=== PATIENT | female | born 1950 | race Caucasian/White ===

== ENCOUNTER → 2018-08-01 | Outpatient (CLI) | payer MEDICARE ==
--- NOTE | 2018-08-01 13:59 | XR ---
EXAMINATION TYPE: XR knee complete RT DATE OF EXAM: 08/01/2018 COMPARISON: NONE HISTORY: Pain TECHNIQUE: Four views are submitted. FINDINGS: Diffuse osteopenia with narrowing of the medial compartment of the knee joint and mild hypertrophic c hanges. Moderate narrowing patellofemoral joint with hypertrophic changes and small amount of fluid i n the suprapatellar bursa.. Osseous structures are intact. No acute fracture seen. IMPRESSION: 1. Osteoarthritis.
== END | disposition home or self-care (01) ==
LOC: RADXRMAIN 13:26
PROVIDERS: ATTEND Family Medicine
DX: M17.11 Unilateral primary osteoarthritis, right knee (principal)

== ENCOUNTER 2020-02-27 08:22 | Observation (INO) | payer MEDICARE ==
[2020-02-27] MEDS ORDERED: SODIUM CHLORIDE 0.9% 500 ML 500 ML IV STA (08:38)
--- NOTE | 2020-02-27 08:52 | ED ---
General Adult HPI - General Chief complaint: Abdominal Pain Stated complaint: abd pain Time Seen by Provider: 02/27/20 08:25 Source: patient, RN notes reviewed, old records reviewed Mode of arrival: ambulatory Limitations: no limitations - History of Present Illness Initial comments: This is a 70-year-old female presents to the emergency department complaining of diffuse abdominal pain. Patient states on Tuesday she believes she over ate and then on Tuesday she had abdominal pain diffusely with a maximum pain score 6 of 10 and in between being much less. Patient states there is no one specific area of pain. Patient states she vomited times one. Patient denies fever or chills. Patient denies any diarrhea. Patient denies dysuria hematuria urinary frequency. Patient denies any chest pain palpitations difficulty breathing. Patient denies any back pain. - Related Data Home Medications Medication Instructions Recorded Confirmed Cholecalciferol [Vitamin D3 (25 1,000 unit PO DAILY 02/27/20 02/27/20 Mcg = 1000 Iu)] Cyanocobalamin (Vitamin B-12) 2,500 mcg PO DAILY 02/27/20 02/27/20 [Vitamin B-12] Ibandronate Sodium 150 mg PO Q30D 02/27/20 02/27/20 Letrozole 2.5 mg PO DAILY 02/27/20 02/27/20 Multivitamins, Thera [Multivitamin 1 tab PO DAILY 02/27/20 02/27/20 (formulary)] Omeprazole 20 mg PO DAILY 02/27/20 02/27/20 Allergies Allergy/AdvReac Type Severity Reaction Status Date / Time No Known Allergies Allergy Verified 02/27/20 10:15 Review of Systems ROS Statement: Those systems with pertinent positive or pertinent negative responses have been documented in the HPI. ROS Other: All systems not noted in ROS Statement are negative. Past Medical History Past Medical History: Cancer Additional Past Medical History / Comment(s): Breast CA 2016 History of Any Multi-Drug Resistant Organisms: None Reported Additional Past Surgical History / Comment(s): D&C Past Psychological History: No Psychological Hx Reported Smoking Status: Never smoker Past Alcohol Use History: None Reported Past Drug Use History: None Reported General Exam - General Exam Comments Initial Comments: GENERAL: Patient is well-developed and well-nourished. Patient is nontoxic and well- hydrated and is in mild distress. ENT: Neck is soft and supple. No significant lymphadenopathy is noted. Oropharynx is clear. Moist mucous membranes. Neck has full range of motion without eliciting any pain. EYES: The sclera were anicteric and conjunctiva were pink and moist. Extraocular movements were intact and pupils were equal round and reactive to light. Eyelids were unremarkable. PULMONARY: Unlabored respirations. Good breath sounds bilaterally. No audible rales rhonchi or wheezing was noted. CARDIOVASCULAR: There is a regular rate and rhythm without any murmurs gallops or rubs. ABDOMEN: No rebound or guarding. There was slight tenderness in the right upper quadrant. SKIN: Skin is clear with no lesions or rashes and otherwise unremarkable. NEUROLOGIC: Patient is alert and oriented x3. Cranial nerves II through XII are grossly intact. Motor and sensory are also intact. Normal speech, volume and content. Symmetrical smile. MUSCULOSKELETAL: Normal extremities with adequate strength and full range of motion. LYMPHATICS: No significant lymphadenopathy is noted PSYCHIATRIC: Normal psychiatric evaluation. Limitations: no limitations Course Vital Signs 02/27/20 02/27/20 02/27/20 08:23 10:33 11:07 Temperature 98.2 F 99.8 F H Pulse Rate 81 68 71 Respiratory 16 16 16 Rate Blood Pressure 112/79 130/64 143/67 O2 Sat by Pulse 95 97 96 Oximetry Medical Decision Making - Medical Decision Making Computed tomography scan shows significant inflammation around the gallbladder and a stone in the gallbladder neck. I spoke with Dr. Pearce she wanted the patient admitted admitted the patient I wrote admitting orders. I started the patient on Zosyn. EKG shows a normal sinus rhythm at 71 bpm WA interval is 138 QRS is 92 QT interval 394 QTC is 428. Patient's EKG shows no ST segment elevation or depression. - Lab Data Result diagrams: 02/27/20 08:51 02/27/20 08:51 Lab Results 02/27/20 02/27/20 02/27/20 Range/Units 08:51 08:51 08:51 WBC 20.3 H (3.8-10.6) k/uL RBC 5.22 (3.80-5.40) m/uL Hgb 15.0 (11.4-16.0) gm/dL Hct 45.8 (34.0-46.0) % MCV 87.7 (80.0-100.0) fL MCH 28.7 (25.0-35.0) pg MCHC 32.7 (31.0-37.0) g/dL RDW 12.7 (11.5-15.5) % Plt Count 258 (150-450) k/uL Neutrophils % 90 % Lymphocytes % 4 % Monocytes % 5 % Eosinophils % 0 % Basophils % 0 % Neutrophils # 18.2 H (1.3-7.7) k/uL Lymphocytes # 0.8 L (1.0-4.8) k/uL Monocytes # 1.1 H (0-1.0) k/uL Eosinophils # 0.1 (0-0.7) k/uL Basophils # 0.0 (0-0.2) k/uL PT (9.0-12.0) sec INR (<1.2) APTT (22.0-30.0) sec Sodium 140 (137-145) mmol/L Potassium 3.6 (3.5-5.1) mmol/L Chloride 100 (98-107) mmol/L Carbon Dioxide 29 (22-30) mmol/L Anion Gap 11 mmol/L BUN 10 (7-17) mg/dL Creatinine 0.75 (0.52-1.04) mg/dL Est GFR (CKD-EPI)AfAm >90 (>60 ml/min/1.73 sqM) Est GFR (CKD-EPI)NonAf 81 (>60 ml/min/1.73 sqM) Glucose 147 H (74-99) mg/dL Plasma Lactic Acid Khang (0.7-2.0) mmol/L Calcium 9.6 (8.4-10.2) mg/dL Total Bilirubin 1.1 (0.2-1.3) mg/dL AST 24 (14-36) U/L ALT 19 (4-34) U/L Alkaline Phosphatase 92 (38-126) U/L Total Protein 7.8 (6.3-8.2) g/dL Albumin 4.2 (3.5-5.0) g/dL Amylase 34 (30-110) U/L Lipase 31 (23-300) U/L Urine Color Yellow Urine Appearance Cloudy H (Clear) Urine pH 5.5 (5.0-8.0) Ur Specific Sanford 1.024 (1.001-1.035) Urine Protein 1+ H (Negative) Urine Glucose (UA) Negative (Negative) Urine Ketones 3+ H (Negative) Urine Blood Small H (Negative) Urine Nitrite Negative (Negative) Urine Bilirubin Negative (Negative) Urine Urobilinogen 2.0 (<2.0) mg/dL Ur Leukocyte Esterase Moderate H (Negative) Urine RBC 4 (0-5) /hpf Urine WBC 17 H (0-5) /hpf Ur Squamous Epith Cells 9 H (0-4) /hpf Urine Mucus Many H (None) /hpf 02/27/20 02/27/20 Range/Units 08:51 10:42 WBC (3.8-10.6) k/uL RBC (3.80-5.40) m/uL Hgb (11.4-16.0) gm/dL Hct (34.0-46.0) % MCV (80.0-100.0) fL MCH (25.0-35.0) pg MCHC (31.0-37.0) g/dL RDW (11.5-15.5) % Plt Count (150-450) k/uL Neutrophils % % Lymphocytes % % Monocytes % % Eosinophils % % Basophils % % Neutrophils # (1.3-7.7) k/uL Lymphocytes # (1.0-4.8) k/uL Monocytes # (0-1.0) k/uL Eosinophils # (0-0.7) k/uL Basophils # (0-0.2) k/uL PT 10.9 (9.0-12.0) sec INR 1.1 (<1.2) APTT 26.9 (22.0-30.0) sec Sodium (137-145) mmol/L Potassium (3.5-5.1) mmol/L Chloride (98-107) mmol/L Carbon Dioxide (22-30) mmol/L Anion Gap mmol/L BUN (7-17) mg/dL Creatinine (0.52-1.04) mg/dL Est GFR (CKD-EPI)AfAm (>60 ml/min/1.73 sqM) Est GFR (CKD-EPI)NonAf (>60 ml/min/1.73 sqM) Glucose (74-99) mg/dL Plasma Lactic Acid Khang 2.0 (0.7-2.0) mmol/L Calcium (8.4-10.2) mg/dL Total Bilirubin (0.2-1.3) mg/dL AST (14-36) U/L ALT (4-34) U/L Alkaline Phosphatase (38-126) U/L Total Protein (6.3-8.2) g/dL Albumin (3.5-5.0) g/dL Amylase (30-110) U/L Lipase (23-300) U/L Urine Color Urine Appearance (Clear) Urine pH (5.0-8.0) Ur Specific Sanford (1.001-1.035) Urine Protein (Negative) Urine Glucose (UA) (Negative) Urine Ketones (Negative) Urine Blood (Negative) Urine Nitrite (Negative) Urine Bilirubin (Negative) Urine Urobilinogen (<2.0) mg/dL Ur Leukocyte Esterase (Negative) Urine RBC (0-5) /hpf Urine WBC (0-5) /hpf Ur Squamous Epith Cells (0-4) /hpf Urine Mucus (None) /hpf Disposition Clinical Impression: Cholecystitis Disposition: ADMITTED IP TO THIS [facility] Time of Disposition: 10:57
[2020-02-27 09:02] LABS: Basophils % (A) 0 %; Eosinophils # (A) 0.1 k/uL (0-0.7); Eosinophils % (A) 0 %; HCT 45.8 % (34.0-46.0); Lymphocytes # (A) 0.8 k/uL (1.0-4.8); Lymphocytes % (A) 4 %; MCH 28.7 pg (25.0-35.0); MCHC 32.7 g/dL (31.0-37.0); MCV 87.7 fL (80.0-100.0); Mean Platelet Volume 7.7; Monocytes # (A) 1.1 k/uL (0-1.0); Monocytes % (A) 5 %; Neutrophils # (A) 18.2 k/uL (1.3-7.7); Neutrophils % (A) 90 %; Platelet Count 258 k/uL (150-450); RBC 5.22 m/uL (3.80-5.40); RDW 12.7 % (11.5-15.5); WBC 20.3 k/uL (3.8-10.6)
[2020-02-27 09:11] LABS: ALT 19 U/L (4-34); AST 24 U/L (14-36); African American GFR (CKD) >90 (>60 ml/min/1.73 sqM); Albumin 4.2 g/dL (3.5-5.0); Alkaline Phosphatase 92 U/L (38-126); Amylase 34 U/L (30-110); Anion Gap 11 mmol/L; Blood Urea Nitrogen 10 mg/dL (7-17); Calcium 9.6 mg/dL (8.4-10.2); Carbon Dioxide 29 mmol/L (22-30); Chloride 100 mmol/L (98-107); Glucose 147 mg/dL (74-99); Lipase 31 U/L (23-300); Non-African American GFR(CKD) 81 (>60 ml/min/1.73 sqM); Potassium 3.6 mmol/L (3.5-5.1); Sodium 140 mmol/L (137-145); Total Bilirubin 1.1 mg/dL (0.2-1.3); Total Protein 7.8 g/dL (6.3-8.2)
[2020-02-27 09:15] LABS: Appearance,Urine Cloudy (Clear); Bilirubin,Urine Negative (Negative); Blood,Urine Small (Negative); Color,Urine Yellow; Glucose,Urine (UA) Negative (Negative); Ketones,Urine 3+ (Negative); Leukocyte Esterase,Urine Moderate (Negative); Mucus,Urine Many /hpf; Nitrite,Urine Negative (Negative); PH, Urine 5.5 (5.0-8.0); Protein,Urine 1+ (Negative); RBC,Urine 4 /hpf (0-5); Specific Gravity,Urine 1.024 (1.001-1.035); Squamous Epithelial Cell,Urine 9 /hpf (0-4); WBC,Urine 17 /hpf (0-5)
--- NOTE | 2020-02-27 10:27 | CT ---
EXAMINATION TYPE: CT abdomen pelvis w con DATE OF EXAM: 02/27/2020 HISTORY: Diffuse abdominal pain for 3 days. History of right-sided breast cancer. CT DLP: 1471.6mGycm Automated Exposure Control for Dose Reduction was Utilized. CONTRAST: CT scan of the abdomen and pelvis is performed with IV Contrast, patient injected with 100 mL of Isov ue 300. COMPARISON: None. FINDINGS: LUNG BASES: Mild to moderate bibasilar linear scarring and/or atelectasis.. LIVER/GB: Liver is heterogeneously hypodense consistent with diffuse fatty infiltration. There is par tially exophytic 4.1 cm thin-walled cyst anterior medial segment left hepatic lobe along the interlob ar fissure coronal image 22. There are multiple dependent calcified gallstones in the gallbladder. Ga llbladder has distended margins with moderate ill-defined fluid and fat stranding. There is additiona l 7 mm calculus nondependent felt lodged in gallbladder neck on image 39. Findings are consistent wit h acute cholecystitis. No biliary dilatation noted. No free air identified. No well-formed fluid alisson ection or drainable abscess seen. PANCREAS: No significant abnormality is seen. SPLEEN: Spleen upper limits of normal in size axial image 15. ADRENALS: No significant abnormality is seen. KIDNEYS: Symmetric cortical medullary uptake and excretion without hydronephrosis seen bilaterally. BOWEL: Slightly suboptimal evaluation without enteric contrast. Stomach not greatly distended and magnolia s suboptimally evaluated. No suspicious small or large bowel dilatation. Moderate wall thickening romy tered near level of splenic flexure adjacent to gallbladder is noted. There are diverticula in the le ft and the sigmoid colon. No CT evidence for acute diverticulitis. UTERUS/ADNEXA: Slightly retroverted uterus. Abnormal small to moderate amount of free fluid in pelvis axial image 71. Central hypodensity in uterus there is 13 to 14 mm in thickness image 64. Nonemergen t follow-up is advised. LYMPH NODES: No greater than 1cm abdominal or pelvic lymph nodes are appreciated. OSSEOUS STRUCTURES: Moderate narrowing and mild to moderate acetabular spurring of both hips. Mild-to -moderate multilevel anterior and lateral spurring in the thoracolumbar spine. Facet arthropathy lowe r lumbar levels. OTHER: Mild calcified plaque of the abdominal aorta extends into the branch vessels. Small periumbili monica hernia containing fat axial images 42 through 45. IMPRESSION: 1. CT findings are consistent with acute cholecystitis as detailed above. Suspect 7 mm obstructing ca lculus at gallbladder neck. Suspect reactive moderate to severe acute colitis in the adjacent colon c entered near level of hepatic flexure. 2. Retroverted uterus with abnormal central hypodense prominence could reflect trapped fluid but abno rmal endometrial thickening or neoplasm needs to be excluded. Nonemergent pelvic ultrasound follow-up is advised.
[2020-02-27] MEDS ORDERED: SODIUM CHLORIDE 0.9% 1,000 ML IV ONE ×2 (10:58→15:16)
--- NOTE | 2020-02-27 11:08 | XR ---
EXAMINATION TYPE: XR chest 1V portable DATE OF EXAM: 02/27/2020 COMPARISON: NONE HISTORY: Preop TECHNIQUE: Single frontal view of the chest is obtained. FINDINGS: Bibasilar subsegmental consolidation. Postsurgical change overlying the axilla. Arthropath y of the right shoulder. No overt failure pneumothorax. Heart size normal. Aorta prominent in size. H ypertrophic and degenerative change of the spine. IMPRESSION: 1. Bibasilar atelectasis or early infiltrate correlate clinically. 2. Thoracic aorta appears prominent in size correlate clinically
[2020-02-27 11:09] LABS: INR 1.1 (<1.2); Partial Thromboplastin Time 26.9 sec (22.0-30.0); Prothrombin Time 10.9 sec (9.0-12.0)
[2020-02-27] MEDS ORDERED: PIPERACILLIN-TAZOBACTAM 3.375 GM in SODIUM CHLORIDE 0.9% 100 ML IVPB STA (11:13)
[2020-02-27] MEDS ORDERED: ONDANSETRON 4 MG/2 ML VIAL IVP PRN (12:10)
--- NOTE | 2020-02-27 14:42 | P.GSHP ---
<Camryn Alatorre - Last Filed: 02/27/20 15:23> History of Present Illness H&P Date: 02/27/20 CHIEF COMPLAINT: Abdominal pain HISTORY OF PRESENT ILLNESS: This is a 70-year-old female with a known history of breast cancer with lumpectomy 3. She's currently on chemotherapy. She presents to the emergency room with complaints of diffuse abdominal pain. She reports symptoms started 3 days ago. She did have one episode of vomiting. She reports the pain is an achy pain in the mid abdomen and lower suprapubic area. She denies any change in bowel habits. She denies any fever, chills or sweats. Denies any dysuria, hematuria or urinary frequency. Patient had computed tomography scan of abdomen and pelvis showing findings consistent with acute cholecystitis. PAST MEDICAL HISTORY: See list. PAST SURGICAL HISTORY: See list. MEDICATIONS: See list. ALLERGIES: See list. SOCIAL HISTORY: No illicit drug use. REVIEW OF SYSTEMS: CONSTITUTIONAL: Denies fever or chills. HEENT: Denies blurred vision, vision changes, or eye pain. Denies hemoptysis ENDOCRINE: Denies heat or cold intolerance. CARDIOVASCULAR: Denies chest pain or pressure. RESPIRATORY: No shortness of breath. GASTROINTESTINAL: Denies abdominal pain. Denies nausea or vomiting. NEURO: Denies history of seizures. PSYCH: No depression or suicidal ideation HEMATOLOGIC: Denies bleeding disorders. LYMPHATIC: The patient denies any lumps and bumps around the neck. GENITOURINARY: Denies any blood in urine or increased urinary frequency. MUSCULOSKELETAL: Denies myalgias. Denies joint swelling. Denies decreased range of motion beyond patients baseline. SKIN: Denies pruitis. Denies rash. PHYSICAL EXAM: VITAL SIGNS: Reviewed GENERAL: Well-developed in no acute distress. HEENT: No sclera icterus. Extraocular movements grossly intact. Moist buccal mucosa. Head is atraumatic, normocephalic. Hears conversational speech. No nasal drainage. NECK: Supple without lymphadenopathy. CHEST: Non-labored respirations and equal bilateral excursions. CARDIOVASCULAR: Palpable 2+ radial pulses. ABDOMEN: Soft. Right upper quadrant tenderness with palpation. nondistended MUSCULOSKELETAL: No clubbing or cyanosis. NEUROLOGIC: No focal or lateralizing signs. Cranial nerves II through XII grossly intact. PSYCH: Appropriate affect. Alert and oriented to person, place and time. SKIN: Well perfused. Good skin turgor. LABORATORY DATA: WBC 20.3 hemoglobin 15 lactic 2.0 AST 24 ALT 19 lipase 31 IMAGING: CT abdomen and pelvis showing findings consistent with acute cholecystitis. Suspected 7 mm obstructing calculus stone at the gallbladder neck. Suspect reactive moderate to severe acute colitis and the adjacent colon centered near the level of the hepatic flexure. Retroverted uterus with abnormal central hypodense prominence could reflect trapped fluid but abnormal endometrial thickening or neoplasm needs to be exc luded. Nonemergent pelvic ultrasound is advised. ASSESSMENT: 1. Acute cholecystitis 2. History of right breast cancer status post lumpectomy 3 and on chemotherapy PLAN: - Continue IV Zosyn every 8 hours - Continue IV fluids normal saline at 130 mL per hour - Add Tylenol IV and Toradol for pain control - Continue Zofran as needed for nausea - EKG showing a normal sinus rhythm with incomplete right bundle branch block. Check a 2-D echo and consult cardiology regarding abnormal EKG and for cardiac risk assessment for surgery - Start clear liquid diet - DVT prophylaxis subcu heparin Physician Tube Coremaker note has been reviewed by physician. Signing provider agrees with the documented findings, assessment, and plan of care. Past Medical History Past Medical History: Cancer Additional Past Medical History / Comment(s): Breast CA 2016 History of Any Multi-Drug Resistant Organisms: None Reported Past Surgical History: Breast Surgery Additional Past Surgical History / Comment(s): D&C Past Anesthesia/Blood Transfusion Reactions: No Reported Reaction Past Psychological History: No Psychological Hx Reported Smoking Status: Never smoker Past Alcohol Use History: None Reported Past Drug Use History: None Reported - Past Family History Mother Additional Family Medical History / Comment(s): lived until 92 Father Family Medical History: Coronary Artery Disease (CAD) Additional Family Medical History / Comment(s): from valve failure Medications and Allergies Home Medications Medication Instructions Recorded Confirmed Type Cholecalciferol [Vitamin D3 (25 1,000 unit PO DAILY 02/27/20 02/27/20 History Mcg = 1000 Iu)] Cyanocobalamin (Vitamin B-12) 2,500 mcg PO DAILY 02/27/20 02/27/20 History [Vitamin B-12] Ibandronate Sodium 150 mg PO Q30D 02/27/20 02/27/20 History Letrozole 2.5 mg PO DAILY 02/27/20 02/27/20 History Multivitamins, Thera [Multivitamin 1 tab PO DAILY 02/27/20 02/27/20 History (formulary)] Omeprazole 20 mg PO DAILY 02/27/20 02/27/20 History Allergies Allergy/AdvReac Type Severity Reaction Status Date / Time No Known Allergies Allergy Verified 02/27/20 10:15 Surgical - Exam Vital Signs Temp Pulse Resp BP Pulse Ox 98.2 F 81 16 112/79 95 02/27/20 08:23 02/27/20 08:23 02/27/20 08:23 02/27/20 08:23 02/27/20 08:23 Results - Labs 02/27/20 08:51 02/27/20 08:51 Abnormal Lab Results - Last 24 Hours (Table) 02/27/20 02/27/20 02/27/20 Range/Units 08:51 08:51 08:51 WBC 20.3 H (3.8-10.6) k/uL Neutrophils # 18.2 H (1.3-7.7) k/uL Lymphocytes # 0.8 L (1.0-4.8) k/uL Monocytes # 1.1 H (0-1.0) k/uL Glucose 147 H (74-99) mg/dL Urine Appearance Cloudy H (Clear) Urine Protein 1+ H (Negative) Urine Ketones 3+ H (Negative) Urine Blood Small H (Negative) Ur Leukocyte Esterase Moderate H (Negative) Urine WBC 17 H (0-5) /hpf Ur Squamous Epith Cells 9 H (0-4) /hpf Urine Mucus Many H (None) /hpf Diabetes panel 02/27/20 Range/Units 08:51 Sodium 140 (137-145) mmol/L Potassium 3.6 (3.5-5.1) mmol/L Chloride 100 (98-107) mmol/L Carbon Dioxide 29 (22-30) mmol/L BUN 10 (7-17) mg/dL Creatinine 0.75 (0.52-1.04) mg/dL Glucose 147 H (74-99) mg/dL Calcium 9.6 (8.4-10.2) mg/dL AST 24 (14-36) U/L ALT 19 (4-34) U/L Alkaline Phosphatase 92 (38-126) U/L Total Protein 7.8 (6.3-8.2) g/dL Albumin 4.2 (3.5-5.0) g/dL Calcium panel 02/27/20 Range/Units 08:51 Calcium 9.6 (8.4-10.2) mg/dL Albumin 4.2 (3.5-5.0) g/dL Pituitary panel 02/27/20 Range/Units 08:51 Sodium 140 (137-145) mmol/L Potassium 3.6 (3.5-5.1) mmol/L Chloride 100 (98-107) mmol/L Carbon Dioxide 29 (22-30) mmol/L BUN 10 (7-17) mg/dL Creatinine 0.75 (0.52-1.04) mg/dL Glucose 147 H (74-99) mg/dL Calcium 9.6 (8.4-10.2) mg/dL Adrenal panel 02/27/20 Range/Units 08:51 Sodium 140 (137-145) mmol/L Potassium 3.6 (3.5-5.1) mmol/L Chloride 100 (98-107) mmol/L Carbon Dioxide 29 (22-30) mmol/L BUN 10 (7-17) mg/dL Creatinine 0.75 (0.52-1.04) mg/dL Glucose 147 H (74-99) mg/dL Calcium 9.6 (8.4-10.2) mg/dL Total Bilirubin 1.1 (0.2-1.3) mg/dL AST 24 (14-36) U/L ALT 19 (4-34) U/L Alkaline Phosphatase 92 (38-126) U/L Total Protein 7.8 (6.3-8.2) g/dL Albumin 4.2 (3.5-5.0) g/dL <Freya Orta - Last Filed: 02/28/20 21:45> History of Present Illness Patient seen and evaluated. On full cardiac risk assessment. Also continue antibiotics. Will need inpatient cholecystectomy as cardiology clearance obtained and antibiotics continues. CHIEF COMPLAINT: Acute cholecystitis HISTORY OF PRESENT ILLNESS: The patient is a 70 year old female who reports 4 day history of abdominal pain. She presents with history of breast cancer. Additionally, patient reported poor appetite. She denies any previous episodes. She denies any pre-existing history of gallstones. She reports eating a fatty meal 4 days ago. She presents with elevated white count over 20,000 including computed tomography scan consistent with acute cholecystitis. PAST MEDICAL HISTORY: See list and reviewed PAST SURGICAL HISTORY: See list and reviewed MEDICATIONS: See list and reviewed ALLERGIES: See list and reviewed SOCIAL HISTORY: See list and reviewed FAMILY HISTORY: See list and reviewed REVIEW OF ORGAN SYSTEMS: CONSTITUTIONAL: No fevers or chills. EYES: Denies any trouble with vision. HEENT: No difficulties with hearing. No nosebleeds. No difficulty swallowing. RESPIRATORY: Denies pneumonia. Denies any troubles with breathing or dyspnea on exertion. CARDIOVASCULAR: Denies any chest pain, palpitations, or recent heart attacks. GASTROINTESTINAL: Denies fatty food intolerance. Denies change in bowel habits and gas bloat. Has gastroesophageal reflux disease. Denies abdominal surgery. GENITOURINARY: Denies any blood in urine or increased urinary frequency. NEUROLOGICAL: Denies any numbness or tingling along the distal extremities. No seizure disorders or headaches. MUSCULOSKELETAL: Denies any back pain, stiffness or joint arthritis. SKIN: No current skin cancer. No rash. PSYCHIATRIC: Denies current depression or suicidal thoughts. ENDOCRINE: Denies current thyroid disorders. Denies any blood sugar glucose intolerance. HEME/LYMPHATIC: Denies any lumps and bumps around the neck. No recent deep venous thrombosis. ALLERGY/IMMUNOLOGY: No immunoglobulin therapy. No immune deficiencies. BREAST: History of breast cancer. PHYSICAL EXAM: VITALS: Reviewed CONSTITUTIONAL: Well developed and in no acute distress. EYES: Conjuctivae without sclera icterus. Pupils are equally round and reactive to light. Extraocular movements grossly intact. HEAD, EARS, NOSE, THROAT: Moist buccal mucosa. Head is atraumatic, normocephalic. Hears conversational speech. No nasal drainage. NECK: Supple. No JV distention. No thyroidomegaly. RESPIRATORY: Non-labored respirations and equal bilateral excursions. No gross wheezes. CARDIOVASCULAR: Regular rate and rhythm. Extremities without moderate edema. Palpable 2+ radial pulses. ABDOMEN: Soft. Protuberant. No peritonitis. Right upper quadrant tenderness including bilateral upper abdomen LYMPH: No neck lymphadenopathy. MUSCULOSKELETAL: Nail and fingers with good capillary refill. SKIN: Warm and well perfused with good skin turgor. NEUROLOGIC: Cranial nerves II through XII grossly intact. Sensation upper and extremities intact. No focal or lateralizing signs. PSYCH: Appropriate affect. Alert and oriented to person, place and time. Displays appropriate insight. CLINCAL LABS: Reviewed. WBC over 20,000. LFTs within normal limits. Urinalysis positive leukocyte esterase and WBCs IMAGING: Independently reviewed CT of the abdomen and pelvis demonstrating inflammatory changes along the proximal transverse colon including distended gallbladder with inflammatory changes and multiple gallstones. Free fluid in the pelvis. Has small hiatal hernia. Has cyst along the right lobe of the liver. Features of diverticulosis at tbe descending sigmoid colon. Lesion found within the uterus. EKG: abnormal ASSESSMENT: 1. Acute cholecystitis per computed tomography scan 2. History of breast cancer 3. Leukocytosis PLAN: 1. Recommend echocardiogram for history of abnormal EKG 2. Will need full cardiac risk assessment for abnormal EKG 3. Recommend cholecystectomy while inpatient 4. Recommend IV antibiotics 5. Inpatient hospitalization more than 2 nights. Surgical - Exam Vital Signs Temp Pulse Resp BP Pulse Ox 98.2 F 81 16 112/79 95 02/27/20 08:23 02/27/20 08:23 02/27/20 08:23 02/27/20 08:23 02/27/20 08:23 Results - Labs 02/28/20 05:44 02/27/20 08:51 Abnormal Lab Results - Last 24 Hours (Table) 02/27/20 02/27/20 02/27/20 Range/Units 08:51 08:51 08:51 WBC 20.3 H (3.8-10.6) k/uL Neutrophils # 18.2 H (1.3-7.7) k/uL Lymphocytes # 0.8 L (1.0-4.8) k/uL Monocytes # 1.1 H (0-1.0) k/uL Glucose 147 H (74-99) mg/dL Urine Appearance Cloudy H (Clear) Urine Protein 1+ H (Negative) Urine Ketones 3+ H (Negative) Urine Blood Small H (Negative) Ur Leukocyte Esterase Moderate H (Negative) Urine WBC 17 H (0-5) /hpf Ur Squamous Epith Cells 9 H (0-4) /hpf Urine Mucus Many H (None) /hpf Microbiology - Last 24 Hours (Table) 02/27/20 08:51 Urine Culture - Preliminary Urine,Voided Diabetes panel 02/27/20 Range/Units 08:51 Sodium 140 (137-145) mmol/L Potassium 3.6 (3.5-5.1) mmol/L Chloride 100 (98-107) mmol/L Carbon Dioxide 29 (22-30) mmol/L BUN 10 (7-17) mg/dL Creatinine 0.75 (0.52-1.04) mg/dL Glucose 147 H (74-99) mg/dL Calcium 9.6 (8.4-10.2) mg/dL AST 24 (14-36) U/L ALT 19 (4-34) U/L Alkaline Phosphatase 92 (38-126) U/L Total Protein 7.8 (6.3-8.2) g/dL Albumin 4.2 (3.5-5.0) g/dL Calcium panel 02/27/20 Range/Units 08:51 Calcium 9.6 (8.4-10.2) mg/dL Albumin 4.2 (3.5-5.0) g/dL Pituitary panel 02/27/20 Range/Units 08:51 Sodium 140 (137-145) mmol/L Potassium 3.6 (3.5-5.1) mmol/L Chloride 100 (98-107) mmol/L Carbon Dioxide 29 (22-30) mmol/L BUN 10 (7-17) mg/dL Creatinine 0.75 (0.52-1.04) mg/dL Glucose 147 H (74-99) mg/dL Calcium 9.6 (8.4-10.2) mg/dL Adrenal panel 02/27/20 Range/Units 08:51 Sodium 140 (137-145) mmol/L Potassium 3.6 (3.5-5.1) mmol/L Chloride 100 (98-107) mmol/L Carbon Dioxide 29 (22-30) mmol/L BUN 10 (7-17) mg/dL Creatinine 0.75 (0.52-1.04) mg/dL Glucose 147 H (74-99) mg/dL Calcium 9.6 (8.4-10.2) mg/dL Total Bilirubin 1.1 (0.2-1.3) mg/dL AST 24 (14-36) U/L ALT 19 (4-34) U/L Alkaline Phosphatase 92 (38-126) U/L Total Protein 7.8 (6.3-8.2) g/dL Albumin 4.2 (3.5-5.0) g/dL Assessment and Plan (1) History of breast cancer Current Visit: Yes Status: Acute Code(s): Z85.3 - PERSONAL HISTORY OF MALIGNANT NEOPLASM OF BREAST SNOMED Code(s): 604273696 (2) Morbid obesity due to excess calories Current Visit: Yes Status: Acute Code(s): E66.01 - MORBID (SEVERE) OBESITY DUE TO EXCESS CALORIES SNOMED Code(s): 795073414 (3) BMI 35.0-35.9,adult Current Visit: Yes Status: Acute Code(s): Z68.35 - BODY MASS INDEX (BMI) 35.0-35.9, ADULT SNOMED Code(s): 392435288 (4) Gastroesophageal reflux disease Current Visit: Yes Status: Acute Code(s): K21.9 - GASTRO-ESOPHAGEAL REFLUX DISEASE WITHOUT ESOPHAGITIS SNOMED Code(s): 216482486 (5) Gallstones with obstruction of gallbladder Current Visit: Yes Status: Acute Code(s): K80.21 - CALCULUS OF GALLBLADDER W/O CHOLECYSTITIS WITH OBSTRUCTION SNOMED Code(s): 28701386 (6) Right bundle branch block (RBBB) Current Visit: Yes Status: Acute Code(s): I45.10 - UNSPECIFIED RIGHT BUNDLE- BRANCH BLOCK SNOMED Code(s): 92944159
[2020-02-27] MEDS: KETOROLAC 15 MG/ML 1 ML VIAL IVP SCH ×2 (15:24→23:18)
[2020-02-27] MEDS: SODIUM CHLORIDE 0.9% 1,000 ML IV SCH (17:29)
[2020-02-27] MEDS: PIPERACILLIN-TAZOBACTAM 3.375 GM in SODIUM CHLORIDE 0.9% 100 ML IVPB SCH ×2 (17:31→23:18)
[2020-02-27] MEDS: ACETAMINOPHEN IV (For NPO) 1,000 MG in EMPTY BAG 1 BAG IVPB SCH ×2 (17:31→23:19)
[2020-02-27] MEDS: HEPARIN SODIUM,PORCINE 5,000 UNIT/ML 1 ML VIAL SQ SCH (20:24)
[2020-02-28] MEDS: ACETAMINOPHEN IV (For NPO) 1,000 MG in EMPTY BAG 1 BAG IVPB SCH ×2 (05:34→13:04)
[2020-02-28] MEDS: KETOROLAC 15 MG/ML 1 ML VIAL IVP SCH ×3 (05:34→17:27)
[2020-02-28] MEDS: SODIUM CHLORIDE 0.9% 1,000 ML IV SCH ×4 (05:40→20:26)
[2020-02-28 06:29] LABS: Basophils % (A) 0 %; Eosinophils # (A) 0.2 k/uL (0-0.7); Eosinophils % (A) 1 %; HCT 37.3 % (34.0-46.0); Lymphocytes # (A) 0.7 k/uL (1.0-4.8); Lymphocytes % (A) 4 %; MCH 28.6 pg (25.0-35.0); MCHC 31.7 g/dL (31.0-37.0); MCV 90.4 fL (80.0-100.0); Monocytes % (A) 6 %; Neutrophils # (A) 14.3 k/uL (1.3-7.7); Neutrophils % (A) 88 %; Platelet Count 180 k/uL (150-450); RBC 4.13 m/uL (3.80-5.40); RDW 12.9 % (11.5-15.5); WBC 16.3 k/uL (3.8-10.6)
[2020-02-28 06:56] LABS: HGB 11.8 gm/dL (11.4-16.0)
--- NOTE | 2020-02-28 08:00 | ECHOF ---
Referral Reason:check EF, abnormal EKG MEASUREMENTS -------- HEIGHT: 162.6 cm WEIGHT: 94.8 kg BP: 140/79 RVIDd: 3.2 cm (< 3.3) IVSd: 1.0 cm (0.6 - 1.1) LVIDd: 4.8 cm (3.9 - 5.3) LVPWd: 0.8 cm (0.6 - 1.1) IVSs: 1.3 cm LVIDs: 2.8 cm LVPWs: 1.6 cm LA Diam: 3.7 cm (2.7 - 3.8) LAESV Index (A-L): 23.86 ml/m Ao Diam: 2.5 cm (2.0 - 3.7) AV Cusp: 2.2 cm (1.5 - 2.6) MV EXCURSION: 20.824 mm (> 18.000) MV EF SLOPE: 114 mm/s (70 - 150) EPSS: 0.7 cm MV E Carlos: 0.66 m/s MV DecT: 226 ms MV A Carlos: 0.85 m/s MV E/A Ratio: 0.77 AV maxP.56 mmHg AV meanP.74 mmHg AR PHT: 393 ms RAP: 5.00 mmHg RVSP: 41.96 mmHg FINDINGS -------- Sinus rhythm. This was a technically good study. LV size, wall thickness and systolic function are normal, with an EF greater than 55%. The left aleksandra tricular size is normal. The diastolic filling pattern is normal for the age of the patient 13.52. The right ventricle is normal in size. The left atrial size is normal. Normal LA size by volume 22+/-6 ml/m2. The right atrial size is normal. There is mild aortic regurgitation. There is mild aortic stenosis present. Peak/mean gradient acr oss the Aortic Valve is 16.56mmHg / 8.74mmHg. Mild mitral regurgitation is present. Mild tricuspid regurgitation present. There is mild pulmonary hypertension. Trace/mild (physiologic) pulmonic regurgitation. The aortic root size is normal. There is no pericardial effusion. CONCLUSIONS -------- 1. LV size, wall thickness and systolic function are normal, with an EF greater than 55%. 2. The left ventricular size is normal. 3. The diastolic filling pattern is normal for the age of the patient 13.52 4. The right ventricle is normal in size. 5. The left atrial size is normal. 6. The right atrial size is normal. 7. There is mild aortic regurgitation. 8. There is mild aortic stenosis present. 9. Peak/mean gradient across the Aortic Valve is 16.56mmHg / 8.74mmHg. 10. Mild mitral regurgitation is present. 11. Mild tricuspid regurgitation present. 12. There is mild pulmonary hypertension. 13. Trace/mild (physiologic) pulmonic regurgitation. 14. The aortic root size is normal. 15. There is no pericardial effusion. STUDENT DEAN: Gricelda Moore RDCS
[2020-02-28] MEDS: PIPERACILLIN-TAZOBACTAM 3.375 GM in SODIUM CHLORIDE 0.9% 100 ML IVPB SCH ×2 (08:45→17:26)
[2020-02-28] MEDS: HEPARIN SODIUM,PORCINE 5,000 UNIT/ML 1 ML VIAL SQ SCH ×2 (08:46→20:26)
[2020-02-28] MEDS: LETROZOLE 2.5 MG TAB PO SCH (08:46)
--- NOTE | 2020-02-28 14:06 | P.CRDCN ---
History of Present Illness History of present illness: HISTORY OF PRESENTING ILLNESS This is a pleasant 70-year-old female past medical history significant for brest cancer in 2016. She denies prior history of coronary artery disease and does not follow in the office with a community health nurse. We have been asked to see in consultation for preoperative evaluation. She presented to the hospital with symptoms of abdominal discomfort. She underwent CT of her abdomen and pelvis revealing acute cholecystitis. She is scheduled to undergo cholecystectomy with Dr. Orta tomorrow. She is seen and examined resting comfortably in bed in no acute distress HEENT negative abdominal comfort but only on palpation. She denies symptoms of chest pain, shortness of breath, dizziness or palpitations. She states on a regular basis she is fairly active and exercises regularly. She is able to do her activities of daily living and climb flights of stairs at her home without difficulty or shortness of breath. Echocardiogram obtained reveals preserved LV systolic function with ejection fraction greater than 55%, mild aortic regurgitation, mild aortic stenosis with a mean gradient of 80 mmHg, mild mitral regurgitation and mild tricuspid regurgitation. DIAGNOSTICS EKG reveals right bundle branch block. Chest xray bibasilar subsegmental consolidation noted. Laboratory reviewed, WBC 16.3, hemoglobin 11.8, platelets 180, sodium 140, pot assium 3.6, creatinine 0.75. She takes no daily cardiac medications. REVIEW OF SYSTEMS At the time of my exam: CONSTITUTIONAL: Denies fever or chills. CARDIOVASCULAR: Denies chest pain, shortness of breath, orthopnea, PND or palpitations. RESPIRATORY: Denies cough. GASTROINTESTINAL: Complains of abdominal pain. Denies diarrhea, constipation, nausea or vomiting. MUSCULOSKELETAL: Denies myalgias. NEUROLOGIC: Denies numbness, tingling or weakness. ENDOCRINE: Denies fatigue, weight change, polydipsia or polyurina. GENITOURINARY: Denies burning, hematuria or urgency with micturation. HEMATOLOGIC: Denies history of anemia or bleeding. PHYSICAL EXAMINATION Blood pressure 91/54 heart rate 77 afebrile and maintaining oxygen saturation on room air. CONSTITUTIONAL: No apparent distress. HEENT: Head is normocephalic. Pupils are equal, round. Sclerae anicteric. Mucous membranes of the mouth are moist. No JVD. No carotid bruit. CHEST EXAMINATION: Lungs are clear to auscultation. No chest wall tenderness is noted on palpation or with deep breathing. HEART EXAMINATION: Regular rate and rhythm. S1, S2 heard. Soft systolic ejection murmur at the base, no gallops or rub. ABDOMEN: Soft, nontender. Positive bowel sounds. EXTREMITIES: 2+ peripheral pulses, no lower extremity edema and no calf tenderness. NEUROLOGIC EXAMINATION: Patient is awake, alert and oriented x3. ASSESSMENT Acute cholecystitis Leukocytosis Aortic stenosis, mild PLAN The patient has no symptoms of angina or heart failure. She is clinically euvolemic. She has average risk to undergo surgical intervention. There are no acute contraindications noted. Recommend outpatient stress testing in the office postoperatively in approximately 3-4 weeks. Thank you kindly for this consultation. Nurse Practitioner note has been reviewed, I agree with a documented findings and plan of care. Patient was seen and examined. Past Medical History Past Medical History: Cancer Additional Past Medical History / Comment(s): Breast CA 2016 History of Any Multi-Drug Resistant Organisms: None Reported Past Surgical History: Breast Surgery Additional Past Surgical History / Comment(s): D&C Past Anesthesia/Blood Transfusion Reactions: No Reported Reaction Past Psychological History: No Psychological Hx Reported Smoking Status: Never smoker Past Alcohol Use History: None Reported Past Drug Use History: None Reported - Past Family History Mother Additional Family Medical History / Comment(s): lived until 92 Father Family Medical History: Coronary Artery Disease (CAD) Additional Family Medical History / Comment(s): from valve failure Medications and Allergies Home Medications Medication Instructions Recorded Confirmed Type Cholecalciferol [Vitamin D3 (25 1,000 unit PO DAILY 02/27/20 02/27/20 History Mcg = 1000 Iu)] Cyanocobalamin (Vitamin B-12) 2,500 mcg PO DAILY 02/27/20 02/27/20 History [Vitamin B-12] Ibandronate Sodium 150 mg PO Q30D 02/27/20 02/27/20 History Letrozole 2.5 mg PO DAILY 02/27/20 02/27/20 History Multivitamins, Thera [Multivitamin 1 tab PO DAILY 02/27/20 02/27/20 History (formulary)] Omeprazole 20 mg PO DAILY 02/27/20 02/27/20 History Allergies Allergy/AdvReac Type Severity Reaction Status Date / Time No Known Allergies Allergy Verified 02/27/20 10:15 Physical Exam Vitals: Vital Signs Temp Pulse Resp BP Pulse Ox 02/28/20 11:45 98.5 F 77 17 91/54 94 L 02/28/20 04:59 97.9 F 71 17 95/56 94 L 02/27/20 20:44 98.8 F 71 18 94/59 93 L Intake and Output 02/27/20 02/28/20 02/28/20 22:59 06:59 14:59 Other: # Voids 1 1 Results 02/28/20 05:44 02/27/20 08:51 CBC 02/28/20 Range/Units 05:44 WBC 16.3 H (3.8-10.6) k/uL RBC 4.13 (3.80-5.40) m/uL Hgb 11.8 D (11.4-16.0) gm/dL Hct 37.3 (34.0-46.0) % Plt Count 180 (150-450) k/uL Current Medications Generic Name Dose Route Start Last Admin Trade Name Freq PRN Reason Stop Dose Admin Heparin Sodium (Porcine) 5,000 unit 02/27/20 21:00 02/28/20 08:46 Heparin Sodium,Porcine 5,000 Unit/Ml 1 Ml Vial SQ 5,000 unit Q12HR LG Administration Piperacillin Sod/Tazobactam 100 mls @ 25 mls/hr 02/27/20 16:00 02/28/20 08:45 Sod 3.375 gm/ Sodium Chloride IVPB 25 mls/hr Q8HR LG Administration Sodium Chloride 1,000 mls @ 130 mls/hr 02/27/20 15:30 02/28/20 13:07 Saline 0.9% IV 130 mls/hr .Q7H42M LG Administration Ketorolac Tromethamine 15 mg 02/27/20 15:13 02/28/20 13:06 Ketorolac 15 Mg/Ml 1 Ml Vial IVP 03/03/20 15:14 15 mg Q6HR LG Administration Letrozole 2.5 mg 02/28/20 09:00 02/28/20 08:46 Letrozole 2.5 Mg Tab PO 2.5 mg DAILY LG Administration Ondansetron HCl 4 mg 02/27/20 12:10 02/27/20 12:15 Ondansetron 4 Mg/2 Ml Vial IVP 4 mg Q6HR PRN Administration Nausea And Vomiting Intake and Output 02/27/20 02/28/20 02/28/20 22:59 06:59 14:59 Other: # Voids 1 1 02/28/20 05:44 02/27/20 08:51
--- NOTE | 2020-02-28 14:14 | P.PN ---
<Camryn Alatorre - Last Filed: 02/28/20 14:41> Subjective Progress Note Date: 02/28/20 CHIEF COMPLAINT: Abdominal pain HISTORY OF PRESENT ILLNESS: Patient is being followed for an acute cholecystitis. She is still complaining of some right upper quadrant pain that is controlled with pain medication. She reports decrease in appetite. She is currently on clear liquids. She denies any vomiting does report some nausea. She is passing gas no bowel movement. She's afebrile. White count has gone down from 20.3-16.3 Echo shows an EF of 55% mild mitral regurgitation, mild tricuspid regurgitation, mild aortic regurgitation, mild aortic stenosis and mild pulmonary hypertension. Patient was seen evaluated by cardiology. They reported no acute contraindications noted for surgery. Patient at average risk to undergo surgical intervention. PHYSICAL EXAM: VITAL SIGNS: Reviewed GENERAL: Well-developed in no acute distress. HEENT: No sclera icterus. Extraocular movements grossly intact. Moist buccal mucosa. Head is atraumatic, normocephalic. Hears conversational speech. No nasal drainage. NECK: Supple without lymphadenopathy. CHEST: Non-labored respirations and equal bilateral excursions. CARDIOVASCULAR: Palpable 2+ radial pulses. ABDOMEN: Soft. Nondistended. Nontender. MUSCULOSKELETAL: No clubbing or cyanosis. NEUROLOGIC: No focal or lateralizing signs. Cranial nerves II through XII grossly intact. PSYCH: Appropriate affect. Alert and oriented to person, place and time. SKIN: Well perfused. Good skin turgor. ASSESSMENT: 1. Acute cholecystitis 2. History of right breast cancer status post lumpectomy 3 and on chemotherapy PLAN: - Date of surgery pending cardiac clearance - Continue clear liquid diet - Continue IV Zosyn every 8 hours - Continue IV fluids - Continue Toradol for pain control - Continue Zofran as needed for nausea Physician And [employer] In[employer]rol[employer] note has been reviewed by physician. Signing provider agrees with the documented findings, assessment, and plan of care. Objective - Vital Signs Vital signs: Vital Signs Temp 98.5 F 02/28/20 11:45 Pulse 77 02/28/20 11:45 Resp 17 02/28/20 11:45 BP 91/54 02/28/20 11:45 Pulse Ox 94 L 02/28/20 11:45 Intake & Output 09/16/20 09/17/20 09/17/20 18:59 06:59 18:59 Intake Total 150 Balance 150 Weight 94.801 kg Intake: Intake, IV Titration 150 Amount Sodium Chloride 0.9% 1, 150 000 ml @ 75 mls/hr IV . [id number] ONE Rx#:[id number] Other: # Voids 1 1 - Labs CBC & Chem 7: 02/28/20 05:44 02/27/20 08:51 Labs: Abnormal Lab Results - Last 24 Hours (Table) 02/28/20 Range/Units 05:44 WBC 16.3 H (3.8-10.6) k/uL Neutrophils # 14.3 H (1.3-7.7) k/uL Lymphocytes # 0.7 L (1.0-4.8) k/uL Microbiology - Last 24 Hours (Table) 02/27/20 08:51 Urine Culture - Final Urine,Voided 02/27/20 10:57 Blood Culture - Preliminary Blood No Growth after 24 hours <Freya Orta N - Last Filed: 02/28/20 21:51> Subjective CHIEF COMPLAINT: Acute cholecystitis HISTORY OF PRESENT ILLNESS: The patient is a 70 year old female admitted with acute cholecystitis. She reports improvement of her abdominal pain. She is on antibiotics. She completed cardiac risk assessment. ROS: Mild nausea. No vomiting. No chest pain. No dyspnea on exertion. PHYSICAL EXAM: VITALS: Reviewed CONSTITUTIONAL: Well developed and in no acute distress. EYES: Conjuctivae without sclera icterus. Pupils are equally round and reactive to light. Extraocular movements grossly intact. HEAD, EARS, NOSE, THROAT: Moist buccal mucosa. Head is atraumatic, normocephalic. Hears conversational speech. No nasal drainage. RESPIRATORY: Non-labored respirations and equal bilateral excursions. CARDIOVASCULAR: Regular rate and rhythm. Palpable 2+ radial pulses. ABDOMEN: Soft. Protuberant. Tenderness upper abdomen. MUSCULOSKELETAL: No clubbing cyanosis or edema. SKIN: Warm and well perfused with good skin turgor. NEUROLOGIC: Cranial nerves II through XII grossly intact. PSYCH: Alert and oriented to person, place and time. CLINCAL LABS: Reviewed. WBC over 20,000 now over 16,000. ECHO: Demonstrates ejection fraction over 50%. Mild pulmonary hypertension. ASSESSMENT: 1. Acute cholecystitis per computed tomography scan 2. History of breast cancer 3. Leukocytosis PLAN: 1. Continue IV antibiotics 2. Benefits and risks of robotic cholecystectomy described including possibility of open technique reviewed with the patient and her at bedside. All questions were addressed. 3. Additional antibiotics, Flagyl added to Zosyn. 4. Liquid diet 5. DVT prophylaxis with heparin 6. Tylenol and Toradol for pain Objective - Vital Signs Vital signs: Vital Signs Temp 98.5 F 02/28/20 11:45 Pulse 77 02/28/20 11:45 Resp 17 02/28/20 11:45 BP 91/54 02/28/20 11:45 Pulse Ox 94 L 02/28/20 11:45 Intake & Output 02/27/20 02/28/20 02/28/20 18:59 06:59 18:59 Intake Total 150 Balance 150 Weight 94.801 kg Intake: Intake, IV Titration 150 Amount Sodium Chloride 0.9% 1, 150 000 ml @ 75 mls/hr IV . [id number] ONE Rx#:[id number] Other: # Voids 1 1 2 - Labs CBC & Chem 7: 02/28/20 05:44 02/27/20 08:51 Labs: Abnormal Lab Results - Last 24 Hours (Table) 02/28/20 Range/Units 05:44 WBC 16.3 H (3.8-10.6) k/uL Neutrophils # 14.3 H (1.3-7.7) k/uL Lymphocytes # 0.7 L (1.0-4.8) k/uL Microbiology - Last 24 Hours (Table) 02/27/20 08:51 Urine Culture - Final Urine,Voided 02/27/20 10:57 Blood Culture - Preliminary Blood No Growth after 24 hours Assessment and Plan (1) BMI 35.0-35.9,adult Current Visit: Yes Status: Acute Code(s): Z68.35 - BODY MASS INDEX (BMI) 35.0-35.9, ADULT SNOMED Code(s): 514715630 (2) Cholecystitis Current Visit: Yes Status: Acute Code(s): K81.9 - CHOLECYSTITIS, UNSPECIFIED SNOMED Code(s): 39228898 (3) Gallstones with obstruction of gallbladder Current Visit: Yes Status: Acute Code(s): K80.21 - CALCULUS OF GALLBLADDER W /O CHOLECYSTITIS WITH OBSTRUCTION SNOMED Code(s): 32100536 (4) History of breast cancer Current Visit: Yes Status: Acute Code(s): Z85.3 - PERSONAL HISTORY OF MALIGNANT NEOPLASM OF BREAST SNOMED Code(s): 120913492 (5) Morbid obesity due to excess calories Current Visit: Yes Status: Acute Code(s): E66.01 - MORBID (SEVERE) OBESITY DUE TO EXCESS CALORIES SNOMED Code(s): 196695398 (6) Right bundle branch block (RBBB) Current Visit: Yes Status: Acute Code(s): I45.10 - UNSPECIFIED RIGHT BUNDLE- BRANCH BLOCK SNOMED Code(s): 68179400
[2020-02-28] MEDS: metroNIDAZOLE-NS PMX 500 MG in SALINE 1 100ML.BAG IVPB SCH (20:05)
[2020-02-29] MEDS: KETOROLAC 15 MG/ML 1 ML VIAL IVP SCH ×5 (00:07→23:27)
[2020-02-29] MEDS: PIPERACILLIN-TAZOBACTAM 3.375 GM in SODIUM CHLORIDE 0.9% 100 ML IVPB SCH ×4 (00:09→23:13)
[2020-02-29] MEDS: metroNIDAZOLE-NS PMX 500 MG in SALINE 1 100ML.BAG IVPB SCH ×5 (01:10→23:13)
[2020-02-29] MEDS: SODIUM CHLORIDE 0.9% 1,000 ML IV SCH ×3 (05:15→22:32)
[2020-02-29 06:17] LABS: Basophils % (A) 0 %; Eosinophils # (A) 0.1 k/uL (0-0.7); Eosinophils % (A) 1 %; HCT 34.2 % (34.0-46.0); HGB 10.9 gm/dL (11.4-16.0); Lymphocytes # (A) 0.7 k/uL (1.0-4.8); Lymphocytes % (A) 6 %; MCH 28.3 pg (25.0-35.0); MCV 88.4 fL (80.0-100.0); Mean Platelet Volume 7.4; Monocytes # (A) 0.8 k/uL (0-1.0); Monocytes % (A) 7 %; Neutrophils # (A) 10.1 k/uL (1.3-7.7); Neutrophils % (A) 85 %; Platelet Count 196 k/uL (150-450); RBC 3.87 m/uL (3.80-5.40); RDW 12.7 % (11.5-15.5); WBC 11.9 k/uL (3.8-10.6)
[2020-02-29] MEDS: LETROZOLE 2.5 MG TAB PO SCH (08:51)
[2020-02-29 09:06] LABS: African American GFR (CKD) 86.6 (60.0-200.0); Albumin 3.1 g/dL (3.80-4.90); Albumin/Globulin Ratio 1.41 (1.60-3.17); Anion Gap 10.8 mmol/L (4.00-12.00); BUN/Creat Ratio 16.25 Ratio (12.00-20.00); Carbon Dioxide 24.2 mmol/L (21.6-31.8); Globulin 2.2 g/dL (1.6-3.3); Non-African American GFR(CKD) 74.7 (60.0-200.0); Potassium 3.2 mmol/L (3.5-5.5); Total Protein 5.3 g/dL (6.2-8.2)
[2020-02-29] MEDS: HEPARIN SODIUM,PORCINE 5,000 UNIT/ML 1 ML VIAL SQ SCH ×2 (09:19→23:13)
[2020-02-29] MEDS ORDERED: INDOCYANINE GREEN 25 MG VIAL IV ONE ×2 (13:00→18:24)
[2020-02-29] MEDS ORDERED: Potassium Replacement Protocol 1 EACH MISC MISCELLANE PRN (14:23)
--- NOTE | 2020-02-29 14:23 | P.PN ---
Subjective HISTORY OF PRESENTING ILLNESS This is a pleasant 70-year-old female past medical history significant for brest cancer in 2016. She denies prior history of coronary artery disease and does not follow in the office with a home care rn. She is seen and examined sitting up in bed awaiting surgery this afternoon. She denies chest pain, shor tness of breath, dizziness or palpitations. Blood pressure 98/54 heart rate 84 afebrile and maintaining oxygen saturation on room air. PHYSICAL EXAMINATION CONSTITUTIONAL: No apparent distress. HEENT: Head is normocephalic. Pupils are equal, round. Sclerae anicteric. Mucous membranes of the mouth are moist. No JVD. No carotid bruit. CHEST EXAMINATION: Lungs are clear to auscultation. No chest wall tenderness is noted on palpation or with deep breathing. HEART EXAMINATION: Regular rate and rhythm. S1, S2 heard. Soft systolic ejection murmur at the base, no gallops or rub. EXTREMITIES: 2+ peripheral pulses, no lower extremity edema and no calf tenderness. ASSESSMENT Acute cholecystitis Leukocytosis Aortic stenosis, mild Hypokalemia PLAN Replace potassium per protocol. Stable to undergo surgical intervention. No acute contraindications from a cardiac perspective. Recommend follow up with Dr. Padron in the office in 3-4 weeks for stress test. Nurse Practitioner note has been reviewed, I agree with a documented findings and plan of care. Patient was seen and examined. Objective - Vital Signs Vital signs: Vital Signs Temp 98.2 F 02/29/20 12:01 Pulse 84 02/29/20 12:01 Resp 16 02/29/20 12:01 BP 98/54 02/29/20 12:01 Pulse Ox 96 02/29/20 12:01 Intake & Output 02/28/20 02/29/20 02/29/20 18:59 06:59 18:59 Other: # Voids 2 2 - Labs CBC & Chem 7: 02/29/20 05:39 02/29/20 05:39 Labs: Abnormal Lab Results - Last 24 Hours (Table) 02/29/20 02/29/20 Range/Units 05:39 05:39 WBC 11.9 H (3.8-10.6) k/uL Hgb 10.9 L (11.4-16.0) gm/dL Neutrophils # 10.1 H (1.3-7.7) k/uL Lymphocytes # 0.7 L (1.0-4.8) k/uL Potassium 3.2 L (3.5-5.5) mmol/L Calcium 8.0 L (8.7-10.3) mg/dL Total Protein 5.3 L (6.2-8.2) g/dL Albumin 3.10 L (3.80-4.90) g/dL Albumin/Globulin Ratio 1.41 L (1.60-3.17) g/dL Microbiology - Last 24 Hours (Table) 02/27/20 10:57 Blood Culture - Preliminary Blood No Growth after 48 hours 02/27/20 08:51 Urine Culture - Final Urine,Voided
[2020-02-29] MEDS ORDERED: LACTATED RINGERS 1,000 ML IV ONE ×2 (17:19→21:00)
[2020-02-29] MEDS ORDERED: DEXAMETHASONE SOD PHOSPHATE 10 MG/ML 1 ML VIAL IV ONE (17:19)
[2020-02-29] MEDS ORDERED: ONDANSETRON 4 MG/2 ML VIAL IVP ONE (17:19)
[2020-02-29] MEDS ORDERED: KETOROLAC 15 MG/ML 1 ML VIAL ONE (18:24)
[2020-02-29] MEDS ORDERED: SUCCINYLCHOLINE CHLORIDE 100 MG/5 ML SYR IV ONE (18:24)
[2020-02-29] MEDS ORDERED: GLYCOPYRROLATE 0.2 MG/ML 2 ML VIAL ONE (18:24)
[2020-02-29] MEDS ORDERED: LIDOCAINE 1% INJ 10MG/ML (20 ML MDV) ONE (18:24)
[2020-02-29] MEDS ORDERED: ROCURONIUM 10 MG/ML (5 ML VIAL) IV ONE (18:24)
[2020-02-29] MEDS ORDERED: PROPOFOL 10 MG/ML 20 ML VIAL IV ONE (18:24)
[2020-02-29] MEDS ORDERED: fentaNYL (PF) 50 MCG/ML 2 ML AMP ONE (18:24)
[2020-02-29] MEDS ORDERED: MIDAZOLAM 2 MG/2 ML VIAL ONE (18:24)
[2020-02-29] MEDS ORDERED: NEOSTIGMINE 1 MG/ML 10 ML VIAL ONE (18:24)
[2020-02-29] MEDS ORDERED: HYDROmorphone (PF) 1 MG/ML ONE (18:24)
--- NOTE | 2020-02-29 18:28 | P.HPADDEND ---
H&P Addendum H&P Addendum Date: 02/29/20 Patient seen and evaluated. She reports moderate improvement of her abdominal pain in the last 24-48 hours. Patient cleared by cardiology. Benefits and vascular procedure described in detail. We'll proceed with cholecystectomy.
[2020-02-29] MEDS ORDERED: LIDOCAINE 1%-EPI 1:100,000 20 ML VIAL SQ ONE (18:58)
[2020-02-29] MEDS ORDERED: HYDROcodone/APAP 5-325MG 1 EACH TAB PO PRN (21:25)
[2020-02-29] MEDS ORDERED: HYDROmorphone 0.5 MG/0.5 ML SYRINGE IVP PRN (21:25)
[2020-02-29] MEDS ORDERED: NALOXONE 0.4 MG/ML 1 ML VIAL IV PRN (21:25)
--- NOTE | 2020-02-29 21:35 | P.OP ---
Date of Procedure: 02/29/20 Description of Procedure: SURGEON: RADHA LEAVITT MD PREOPERATIVE DIAGNOSES: 1. Acute cholecystitis 2. Right upper quadrant abdominal pain 3. Morbid obesity due to excess calories, BMI 35.9 4. Symptomatic gallstones 5. Leukocytosis 6. History of breast cancer POSTOPERATIVE DIAGNOSES: 1. Gangrenous acute cholecystitis due to cystic duct obstruction, gallstones 2. Right upper quadrant abdominal pain 3. Morbid obesity due to excess calories, BMI 35.9 4. Symptomatic gallstones 5. Leukocytosis 6. History of breast cancer 7. Peritoneal adhesions right upper quadrant OPERATION: 1. Robotic-assisted da Charla Xi laparoscopic lysis of adhesions 2. Robotic-assisted da Charla Xi laparoscopic subtotal cholecystectomy, multiport with FIREFLY 3. Placement of round #19 drain hepatic fossa ESTIMATED BLOOD LOSS: 75 mL. SPECIMENS REMOVED: Gallbladder, peritoneal fluid anaerobic and aerobic cultures COMPLICATIONS: None. OPERATIVE FINDINGS: 1. Acute cholecystitis with cystic duct obstruction with hydrops 2. Subtotal cholecystectomy performed at infundibulum with 45 mm green/blue robotic stapler loads 3. Phlegmon along right upper quadrant requiring extensive lysis of adhesions over 30 minutes INDICATIONS: The patient is a 70-year-old female with demonstrating acute cholecystitis. Surgical intervention with a laparoscopic cholecystectomy was described at length including injury to the biliary tree, bleeding, infection, need for further surgery. Informed consent was obtained. Robotic assisted laparoscopic approach was described. DESCRIPTION OF PROCEDURE: Patient was brought to the operating room, placed in supine position. After general induction, the abdomen had been prepped and draped in standard sterile fashion. The robotic da Charla XI system was primed. After a timeout protocol was performed, the patient had been prepped and draped in standard sterile fashion. The patient was injected with indocyanine green. A 5 mm 0 degrees laparoscopic trocar entry was performed along the left upper quadrant. The abdomen insufflated to 15 mmHg pressure which was tolerated well. Diagnostic laparoscopy demonstrated no injury to bowel viscera or mesentery. Along the right upper quadrant, the gallbladder was encased in fatty tissue, omentum. A 6 mm stellate lesion was identified along the anterior surface of the right inferior edge of the liver lobe. Next, two 8 mm robotic ports were placed along the right upper abdomen. The camera 8-mm port was maintained along the epigastrium. Another 8 mm port was placed along the left upper abdominal wall after exchanging the 5 mm port. Please note that the ports were placed at least 10 to 15 cm away from the target anatomy of the gallbladder. The robot was docked along the left lateral abdomen. The patient was repositioned in reverse Trendelenburg position, 22 and right side up 60. Using a grasper for arm 3, a grasper for arm 4, including hook cautery for arm 1, the robotic system was docked and primed as described. Instruments were interchanged by the ice cream freezer assistant including hook cautery, Bovie cautery and clip appliers. I had sat at the console. The gallbladder was encased in omentum including adherent to the proximal transverse colon. Lysis of adhesions using blunt dissection was performed to release the gallbladder from surrounding tissues. Gallbladder wall was edematous including hemorrhagic. The cystic structures were completely obscured by severe edema necessitating dome down technique. Extensive lysis of adhesions including dissection of the gallbladder over 45 minutes was performed to prevent harm to the cystic structures. The gallbladder fundus was retracted over the dome of the liver. The cystic structures were completely obscured with edematous infundibulum and fatty tissue. A dome down technique was performed removing the gallbladder from the hepatic fossa. Using indocyanine green, the entire gallbladder lacked visualization consistent with acute cholecystitis. The posterior wall/hepatic wall of the gallbladder was completely necrotic and the bile lacked green color was purulent consistent with purulent hydrops. The port along the left upper quadrant was exchanged for a 12 mm port. A green 45 mm robotic stapler was used to divide the gallbladder at the infundibulum as the necrotic gallbladder resected. The right upper quadrant was irrigated with normal saline. Hemostasis was checked and found to be adequate. The robot was undocked. I re-scrubbed into the case. Using a 10 mm Endo Catch bag via the left upper quadrant incision, the specimen was removed from the abdominal cavity. A round #19 drain was placed along the hepatic fossa exiting via the right lateral port. A 2-0 nylon drain stitch was placed. The left upper quadrant trocar was oversewn using 0 Vicryl and Johny Curry. All pneumoperitoneum instruments were evacuated from the abdominal cavity. The incisions were reapproximated using 4-0 Monocryl in an interrupted subcuticular fashion. Please note along the trocar sites, local anesthetic was placed as a field block prior to insertion of all instruments. The skin was cleansed with dilute hydrogen peroxide. Liquid glue was applied to the skin. Optifoam dressing was placed along the left upper quadrant and drain site. At the end of the procedure needle, sponge, and instrument count had been verified correct by the surgical technology instructor. The patient was transferred to postanesthesia care unit in stable condition. Console time 97 minutes
[2020-03-01] MEDS ORDERED: Potassium Replacement Protocol 1 EACH MISC MISCELLANE PRN (01:12)
[2020-03-01] MEDS: POTASSIUM CHLORIDE ER 20 MEQ TAB.ER PO SCH ×3 (01:13→03:13)
[2020-03-01 05:00] LABS: Basophils % (A) 0 %; Eosinophils % (A) 0 %; HCT 32.7 % (34.0-46.0); HGB 10.3 gm/dL (11.4-16.0); Lymphocytes # (A) 0.5 k/uL (1.0-4.8); Lymphocytes % (A) 4 %; MCH 28.6 pg (25.0-35.0); MCHC 31.5 g/dL (31.0-37.0); MCV 90.9 fL (80.0-100.0); Mean Platelet Volume 7.3; Monocytes # (A) 0.6 k/uL (0-1.0); Monocytes % (A) 5 %; Neutrophils % (A) 90 %; Platelet Count 211 k/uL (150-450); RDW 12.9 % (11.5-15.5); WBC 12.2 k/uL (3.8-10.6)
[2020-03-01] MEDS: KETOROLAC 15 MG/ML 1 ML VIAL IVP SCH ×4 (06:20→23:15)
[2020-03-01] MEDS: metroNIDAZOLE-NS PMX 500 MG in SALINE 1 100ML.BAG IVPB SCH ×4 (06:20→23:09)
[2020-03-01] MEDS: SODIUM CHLORIDE 0.9% 1,000 ML IV SCH ×2 (06:24→13:16)
[2020-03-01] MEDS: PIPERACILLIN-TAZOBACTAM 3.375 GM in SODIUM CHLORIDE 0.9% 100 ML IVPB SCH ×3 (08:09→23:09)
[2020-03-01] MEDS: LETROZOLE 2.5 MG TAB PO SCH (08:09)
[2020-03-01] MEDS: HEPARIN SODIUM,PORCINE 5,000 UNIT/ML 1 ML VIAL SQ SCH ×2 (08:09→21:05)
[2020-03-01] MEDS: PANTOPRAZOLE 40 MG/10 ML VIAL IV SCH (08:10)
[2020-03-01 09:53] LABS: African American GFR (CKD) 101.7 (60.0-200.0); Albumin 2.9 g/dL (3.80-4.90); Albumin/Globulin Ratio 1.45 (1.60-3.17); Anion Gap 9.6 mmol/L (4.00-12.00); BUN/Creat Ratio 22.86 Ratio (12.00-20.00); Calcium 7.8 mg/dL (8.7-10.3); Carbon Dioxide 20.4 mmol/L (21.6-31.8); Magnesium 1.7 mg/dL (1.5-2.4); Non-African American GFR(CKD) 87.8 (60.0-200.0); Phosphorus 3.5 mg/dL (2.4-5.1); Potassium 3.8 mmol/L (3.5-5.5); Total Bilirubin 0.5 mg/dL (0.2-1.2); Total Protein 4.9 g/dL (6.2-8.2)
[2020-03-01 11:33] VITALS: RESP 18
--- NOTE | 2020-03-01 13:31 | P.PN ---
Subjective Progress Note Date: 03/01/20 CHIEF COMPLAINT: Acute cholecystitis HISTORY OF PRESENT ILLNESS: The patient is a 70 year old female admitted with acute gangrenous cholecystitis. "I feel so much better," she reports. No nausea. She reports new appetite. She had a bowel movement. Pain is controlled. She is passing flatus. Family is at bedside. ROS: No vomiting. No chest pain. No dyspnea on exertion. PHYSICAL EXAM: VITALS: Reviewed CONSTITUTIONAL: Well developed and in no acute distress. EYES: Conjuctivae without sclera icterus. Pupils are equally round and reactive to light. Extraocular movements grossly intact. HEAD, EARS, NOSE, THROAT: Moist buccal mucosa. Head is atraumatic, normocephalic. Hears conversational speech. No nasal drainage. RESPIRATORY: Non-labored respirations and equal bilateral excursions. CARDIOVASCULAR: Palpable 2+ radial pulses. ABDOMEN: No peritonitis. Incisions clean dry and intact. MUSCULOSKELETAL: No clubbing cyanosis or edema. SKIN: Warm and well perfused with good skin turgor. NEUROLOGIC: Cranial nerves II through XII grossly intact. PSYCH: Alert and oriented to person, place and time. CLINCAL LABS: Reviewed. WBC elevated, expected post surgery. LFTs improved ASSESSMENT: 1. Acute cholecystitis per computed tomography scan 2. History of breast cancer 3. Leukocytosis PLAN: 1. Intraoperative findings reviewed in detail regarding gangrenous cholecystitis 2. May advance diet 3. Plan for outpatient antibiotics 4. Discharge pending tolerate diet and continued IV antibiotics for gangrene gallbladder. Objective - Vital Signs Vital signs: Vital Signs Temp 98.0 F 03/01/20 11:15 Pulse 64 03/01/20 11:15 Resp 18 03/01/20 11:15 BP 111/66 03/01/20 11:15 Pulse Ox 91 L 03/01/20 11:15 Intake & Output 02/29/20 03/01/20 03/01/20 18:59 06:59 18:59 Intake Total 750 300 Output Total 105 Balance 750 195 Intake: IV 750 300 Output: Drainage 30 Right Lower Abdomen 30 Estimated Blood Loss 75 Other: Voiding Method Toilet Toilet Bedside Commode Bedside Commode # Voids 3 1 # Bowel Movements 2 - Labs CBC & Chem 7: 03/02/20 11:32 03/02/20 11:32 Labs: Abnormal Lab Results - Last 24 Hours (Table) 02/29/20 03/01/20 03/01/20 Range/Units 23:07 04:42 04:42 WBC 12.2 H (3.8-10.6) k/uL RBC 3.60 L (3.80-5.40) m/uL Hgb 10.3 L (11.4-16.0) gm/dL Hct 32.7 L (34.0-46.0) % Neutrophils # 11.0 H (1.3-7.7) k/uL Lymphocytes # 0.5 L (1.0-4.8) k/uL Potassium 3.3 L (3.5-5.1) mmol/L Carbon Dioxide 20.4 L (21.6-31.8) mmol/L BUN/Creatinine Ratio 22.86 H (12.00-20.00) Ratio Glucose 112 H (70-110) mg/dL Calcium 7.8 L (8.7-10.3) mg/dL Total Protein 4.9 L (6.2-8.2) g/dL Albumin 2.90 L (3.80-4.90) g/dL Albumin/Globulin Ratio 1.45 L (1.60-3.17) g/dL Microbiology - Last 24 Hours (Table) 02/27/20 10:57 Blood Culture - Preliminary Blood No Growth after 72 hours 02/29/20 21:11 Gram Stain - Preliminary Other - Other Wound Culture - Preliminary 02/29/20 21:11 Anaerobic Culture - Preliminary Other - Other Assessment and Plan (1) BMI 35.0-35.9,adult Status: Acute Code(s): Z68.35 - BODY MASS INDEX (BMI) 35.0-35.9, ADULT SNOMED Code(s): 914851976 (2) Cholecystitis Status: Acute Code(s): K81.9 - CHOLECYSTITIS, UNSPECIFIED SNOMED Code(s): 75309605 (3) Gallstones with obstruction of gallbladder Status: Acute Code(s): K80.21 - CALCULUS OF GALLBLADDER W/O CHOLECYSTITIS WITH OBSTRUCTION SNOMED Code(s): 75954030 (4) History of breast cancer Status: Acute Code(s): Z85.3 - PERSONAL HISTORY OF MALIGNANT NEOPLASM OF BREAST SNOMED Code(s): 964909225 (5) Morbid obesity due to excess calories Status: Acute Code(s): E66.01 - MORBID (SEVERE) OBESITY DUE TO EXCESS CALORIES SNOMED Code(s): 812577131 (6) Right bundle branch block (RBBB) Status: Acute Code(s): I45.10 - UNSPECIFIED RIGHT BUNDLE-BRANCH BLOCK SNOMED Code(s): 27658553
[2020-03-02] MEDS: metroNIDAZOLE-NS PMX 500 MG in SALINE 1 100ML.BAG IVPB SCH ×2 (05:23→12:18)
[2020-03-02] MEDS: KETOROLAC 15 MG/ML 1 ML VIAL IVP SCH ×2 (05:23→13:00)
[2020-03-02] MEDS: PANTOPRAZOLE 40 MG/10 ML VIAL IV SCH (07:25)
[2020-03-02] MEDS: HEPARIN SODIUM,PORCINE 5,000 UNIT/ML 1 ML VIAL SQ SCH (07:25)
[2020-03-02] MEDS: PIPERACILLIN-TAZOBACTAM 3.375 GM in SODIUM CHLORIDE 0.9% 100 ML IVPB SCH (07:26)
[2020-03-02] MEDS: LETROZOLE 2.5 MG TAB PO SCH (07:26)
[2020-03-02 11:55] LABS: Basophils % (A) 0 %; Eosinophils # (A) 0.2 k/uL (0-0.7); Eosinophils % (A) 2 %; HCT 35.8 % (34.0-46.0); HGB 11.1 gm/dL (11.4-16.0); Lymphocytes # (A) 0.9 k/uL (1.0-4.8); Lymphocytes % (A) 12 %; MCH 27.7 pg (25.0-35.0); MCHC 30.9 g/dL (31.0-37.0); MCV 89.7 fL (80.0-100.0); Mean Platelet Volume 7.1; Monocytes # (A) 0.4 k/uL (0-1.0); Monocytes % (A) 6 %; Neutrophils # (A) 6.2 k/uL (1.3-7.7); Neutrophils % (A) 80 %; Platelet Count 253 k/uL (150-450); RDW 12.9 % (11.5-15.5); WBC 7.8 k/uL (3.8-10.6)
[2020-03-02 12:02] LABS: ALT 17 U/L (4-34); AST 30 U/L (14-36); African American GFR (CKD) >90 (>60 ml/min/1.73 sqM); Albumin 2.7 g/dL (3.5-5.0); Albumin/Globulin Ratio 0.9; Alkaline Phosphatase 90 U/L (38-126); Anion Gap 5 mmol/L; Blood Urea Nitrogen 15 mg/dL (7-17); Calcium 8.3 mg/dL (8.4-10.2); Carbon Dioxide 23 mmol/L (22-30); Chloride 112 mmol/L (98-107); Globulin 2.9 g/dL; Glucose 121 mg/dL (74-99); Non-African American GFR(CKD) 80 (>60 ml/min/1.73 sqM); Potassium 3.2 mmol/L (3.5-5.1); Sodium 140 mmol/L (137-145); Total Bilirubin 0.5 mg/dL (0.2-1.3); Total Protein 5.6 g/dL (6.3-8.2)
[2020-03-02 12:09] VITALS: BP 120/72; PULSE 63; TEMP 98
[2020-03-02] MEDS ORDERED: POTASSIUM CHLORIDE ER 20 MEQ TAB.ER PO STA (12:12)
--- NOTE | 2020-03-02 14:20 | P.DS ---
Providers Date of admission: 02/27/20 10:58 Expected date of discharge: 03/02/20 Attending physician: Freya Orta Consults: 02/27/20 15:21 Consult Physician Routine Consulting Provider: Nicanor Samayoa Consult Reason/Comments: abnormal EKG, cardiac risk assessment Do you want consulting provider notified?: Yes Primary care physician: Cyndie Moore - Discharge Diagnosis(es) (1) BMI 35.0-35.9,adult Status: Acute (2) Cholecystitis Status: Acute (3) Gallstones with obstruction of gallbladder Status: Acute (4) History of breast cancer Status: Acute (5) Morbid obesity due to excess calories Status: Acute (6) Right bundle branch block (RBBB) Status: Acute (7) Acute gangrenous cholecystitis Status: Acute (8) Gallbladder hydrops Status: Acute Hospital Course: POSTOPERATIVE DIAGNOSES: 1. Gangrenous acute cholecystitis due to cystic duct obstruction, gallstones 2. Right upper quadrant abdominal pain 3. Morbid obesity due to excess calories, BMI 35.9 4. Symptomatic gallstones 5. Leukocytosis 6. History of breast cancer 7. Peritoneal adhesions right upper quadrant COURSE: The patient is a 70 year old female admitted with acute gangrenous cholecystitis. She underwent robotic cholecystectomy without sequela. Her symptoms had improved. She is tolerating diet and having bowel movements. Right upper quadrant pain has improved. MAHENDRA is serous. WBC is normal. LFTs are normal ROS: No vomiting. No chest pain. No dyspnea on exertion. PHYSICAL EXAM: VITALS: Reviewed CONSTITUTIONAL: Well developed and in no acute distress. EYES: Conjuctivae without sclera icterus. Pupils are equally round and reactive to light. Extraocular movements grossly intact. HEAD, EARS, NOSE, THROAT: Moist buccal mucosa. Head is atraumatic, normocephalic. Hears conversational speech. No nasal drainage. RESPIRATORY: Non-labored respirations and equal bilateral excursions. CARDIOVASCULAR: Palpable 2+ radial pulses. ABDOMEN: No peritonitis. MAHENDRA serous MUSCULOSKELETAL: No clubbing cyanosis or edema. SKIN: Warm and well perfused with good skin turgor. NEUROLOGIC: Cranial nerves II through XII grossly intact. PSYCH: Alert and oriented to person, place and time. CLINCAL LABS: Reviewed. WBC improved. LFTs improved PLAN: 1. Discharge with MAHENDRA 2. Follow-up in office in 5 days. Procedures: OPERATION: 1. Robotic-assisted da Charla Xi laparoscopic lysis of adhesions 2. Robotic-assisted da Charla Xi laparoscopic subtotal cholecystectomy, multiport with FIREFLY 3. Placement of round #19 drain hepatic fossa ESTIMATED BLOOD LOSS: 75 mL. SPECIMENS REMOVED: Gallbladder, peritoneal fluid anaerobic and aerobic cultures COMPLICATIONS: None. OPERATIVE FINDINGS: 1. Acute cholecystitis with cystic duct obstruction with hydrops 2. Subtotal cholecystectomy performed at infundibulum with 45 mm green/blue robotic stapler loads 3. Phlegmon along right upper quadrant requiring extensive lysis of adhesions over 30 minutes Patient Condition at Discharge: Good Plan - Discharge Summary Discharge Rx Participant: Yes New Discharge Prescriptions: New Amoxic-Pot Clav 875-125Mg [Augmentin Xr 875-125] 1 each PO Q12HR #10 tablet metroNIDAZOLE [Flagyl] 500 mg PO TID #15 300ml.bag Ibuprofen [Motrin] 600 mg PO Q8HR PRN #30 tab PRN Reason: Pain Acetaminophen Tab [Tylenol Tab] 500 mg PO Q6H PRN #30 tablet PRN Reason: Pain Continue Multivitamins, Thera [Multivitamin (formulary)] 1 tab PO DAILY Cholecalciferol [Vitamin D3 (25 Mcg = 1000 Iu)] 1,000 unit PO DAILY Omeprazole 20 mg PO DAILY Letrozole 2.5 mg PO DAILY Ibandronate Sodium 150 mg PO Q30D Cyanocobalamin (Vitamin B-12) [Vitamin B-12] 2,500 mcg PO DAILY Discharge Medication List Cholecalciferol [Vitamin D3 (25 Mcg = 1000 Iu)] 1,000 unit PO DAILY 02/27/20 [History] Cyanocobalamin (Vitamin B-12) [Vitamin B-12] 2,500 mcg PO DAILY 02/27/20 [ History] Ibandronate Sodium 150 mg PO Q30D 02/27/20 [History] Letrozole 2.5 mg PO DAILY 02/27/20 [History] Multivitamins, Thera [Multivitamin (formulary)] 1 tab PO DAILY 02/27/20 [History] Omeprazole 20 mg PO DAILY 02/27/20 [History] Acetaminophen Tab [Tylenol Tab] 500 mg PO Q6H PRN #30 tablet 03/01/20 [Rx] Amoxic-Pot Clav 875-125Mg [Augmentin Xr 875-125] 1 each PO Q12HR #10 tablet 03/01/20 [Rx] Ibuprofen [Motrin] 600 mg PO Q8HR PRN #30 tab 03/01/20 [Rx] metroNIDAZOLE [Flagyl] 500 mg PO TID #15 300ml.bag 03/01/20 [Rx] Follow up Appointment(s)/Referral(s): Max Padron MD [STAFF PHYSICIAN] - 4 Weeks (call for follow-up appointment on Tuesday, office is currently closed) Freya Orta MD [STAFF PHYSICIAN] - 03/06/20 (Physician's office will call patient with appointment) Cyndie Moore DO [Primary Care Provider] - 1-2 days (call on Tuesday for follow-up appointment on Tuesday, office is currently closed) Patient Instructions/Handouts: Acetaminophen (By mouth), Ibuprofen (By mouth), Metronidazole (By mouth), Amoxicillin/Clavulanate Potassium (By mouth), Major- Santiago Drain Care (ED), Laparoscopic Cholecystectomy (DC) Activity/Diet/Wound Care/Special Instructions: Keep MAHENDRA drain site dry. Dressings to be removed in the office. No lifting over 10 pounds in 2 weeks, March 14. No bathtub soaks for 2 weeks, March 14. Discharge Disposition: HOME SELF-CARE
== END 2020-03-02 15:15 | disposition home or self-care (01) ==
LOC: EC 08:22 → 6NMEDSUR 10:58 → INTOOBSV 10:58 → UNDODISIN 03-02 15:15
PROVIDERS: ADMIT Surgery Plastic and Reconstructive Surgery; ATTEND Surgery Plastic and Reconstructive Surgery
DX: K80.01 Calculus of gallbladder with acute cholecystitis with obstruction (principal); K82.A1 Gangrene of gallbladder in cholecystitis; K82.1 Hydrops of gallbladder; K66.0 Peritoneal adhesions (postprocedural) (postinfection); K65.1 Peritoneal abscess; C50.911 Malignant neoplasm of unspecified site of right female breast; E66.01 Morbid (severe) obesity due to excess calories; I45.10 Unspecified right bundle-branch block; K44.9 Diaphragmatic hernia without obstruction or gangrene; K76.89 Other specified diseases of liver; R93.3 Abnormal findings on diagnostic imaging of other parts of digestive tract; N85.9 Noninflammatory disorder of uterus, unspecified; K21.9 Gastro-esophageal reflux disease without esophagitis; I08.3 Combined rheumatic disorders of mitral, aortic and tricuspid valves; R91.8 Other nonspecific abnormal finding of lung field; E87.6 Hypokalemia; I27.20 Pulmonary hypertension, unspecified; Z79.83 Long term (current) use of bisphosphonates; Z79.811 Long term (current) use of aromatase inhibitors; Z79.899 Other long term (current) drug therapy; Z68.35 Body mass index [BMI] 35.0-35.9, adult; Z98.890 Other specified postprocedural states; Z91.89 Other specified personal risk factors, not elsewhere classified; Z82.49 Family history of ischemic heart disease and other diseases of the circulatory system
CPT/HCPCS: 47562; 49329; 47533; 96376 ×2; 96361 ×2; 96365; 96366 ×2; 96367; 96372 ×2; 96375; 99285; 36415; 93005; 93306; 88304; 80053 ×4; 82150; 83605; 83690; 83735; 84100; 84132; 85025 ×5; 85610; 85730; 81001; 87040; 87070; 87086; 87205; 87075; 87077; 87186; 71045; 74177; G0378 ×5; J2543 ×5; J2250; J1644 ×5; J1100; J2710; J0690; J2405 ×2; J2001; J3010; J1170; J0131 ×2; J1885 ×5; J0330; J2704; C9113 ×2; Q9967; 96360

== ENCOUNTER → 2020-04-10 | Outpatient (CLI) | payer MEDICARE ==
--- NOTE | 2020-04-10 16:27 | US ---
EXAMINATION TYPE: US gallbladder DATE OF EXAM: 04/10/2020 COMPARISON: CT abdomen pelvis 02/27/2020 CLINICAL HISTORY: R10.11 right upper quadrant pain. Pt states recent GB surgery approx. 4 weeks ago/ pt states unable to removed entire GB, pt states this is a F/U to see how GB is looking/ pt denie s pain EXAM MEASUREMENTS: Liver Length: 16.3 cm Gallbladder Wall: 0.2 cm CBD: 0.4 cm Right Kidney: 9.2 x 4.1 x 4.5 cm Pancreas: Normal. Liver: There is poor penetration of the liver due to fatty infiltration. Left hepatic 4.4 cm simple benign cyst redemonstrated. Gallbladder: There is a 3.0 x 2.2 cm remnant gallbladder with shadowing cholelithiasis. No evidence of gallbladder wall thickening or pericholecystic fluid. Vocational Counselor reports negative sonographic Rosenberg sign. CBD: Normal Right Kidney: No hydronephrosis. Inferior pole is obscured by overlying bowel gas. IMPRESSION: 1. 3.0 x 2.2 cm remnant gallbladder containing cholelithiasis. No acute cholecystitis. 2. Fatty liver.
== END | disposition home or self-care (01) ==
LOC: RADUSWWP 12:06
PROVIDERS: ATTEND Surgery Plastic and Reconstructive Surgery
DX: K80.20 Calculus of gallbladder without cholecystitis without obstruction (principal); K76.0 Fatty (change of) liver, not elsewhere classified
CPT/HCPCS: 76705

== ENCOUNTER → 2020-11-21 | Outpatient (CLI) | payer MEDICARE ==
--- NOTE | 2020-11-21 13:04 | XR ---
EXAMINATION TYPE: XR hand complete RT DATE OF EXAM: 11/21/2020 COMPARISON: NONE HISTORY: Palpable abnormality TECHNIQUE: Three views are submitted. FINDINGS: The osseous structures are intact. Diffuse osteopenia and narrowing of the PIP and DIP joints. Narrow ing of the radiocarpal joint. And there is no acute fracture or dislocation. Chronic appearing deform ity of the scaphoid. IMPRESSION: 1. Use osteopenia and arthropathy
--- NOTE | 2020-11-21 13:05 | XR ---
EXAMINATION TYPE: XR pelvis AP view DATE OF EXAM: 11/21/2020 COMPARISON: NONE HISTORY: Pain The osseous structures are intact and the joint spaces are preserved. No acute fracture is seen. Vi sualized bowel gas pattern is nonspecific. Degenerative change lower lumbar spine and arthropathy of the hips bilaterally correlate for femoral acetabular impingement. Ossification in the upper left he mipelvis is nonspecific. IMPRESSION: 1. Lateral hip arthropathy correlate for femoral acetabular impingement. 2. Nonspecific left upper hemipelvic calcification. 3. Degenerative change lower lumbar spine.
--- NOTE | 2020-11-21 13:07 | XR ---
EXAMINATION TYPE: XR sacrum coccyx DATE OF EXAM: 11/21/2020 COMPARISON: NONE HISTORY: Ankle FINDINGS: Three views are submitted. Sacrum is intact. Mild hypertrophic changes involving the sacrum. Degener ative change lower lumbar spine. . Coccyx appears to be intact. Visualized pelvic structures intact. IMPRESSION: 1. No acute fracture.
== END | disposition home or self-care (01) ==
LOC: RADXRMAIN 12:05
PROVIDERS: ATTEND Family Medicine
DX: M16.0 Bilateral primary osteoarthritis of hip (principal); M19.041 Primary osteoarthritis, right hand
CPT/HCPCS: 72170; 72220